=== PATIENT | female | born 1980 | race Caucasian/White ===

== ENCOUNTER 2020-05-12 13:39 | Emergency (ER) | payer OTHER, SELFPAY ==
[2020-05-12 13:40] VITALS: BP 147/82; PULSE 85; RESP 16; TEMP 36.3; O2SAT 100; BMI 31.2
[2020-05-12 13:49] VITALS: BP 127/90; PULSE 80; RESP 13; O2SAT 98
--- NOTE | 2020-05-12 13:53 | EKG12_ITS ---
Test Reason : CP Blood Pressure : / mmHG Vent. Rate : 073 BPM Atrial Rate : 073 BPM P-R Int : 172 ms QRS Dur : 082 ms QT Int : 384 ms P-R-T Axes : 030 061 030 degrees QTc Int : 423 ms Sinus rhythm with sinus arrhythmia with occasional Premature ventricular complexes Otherwise normal ECG Confirmed by NANCY GARCIA, SHERLY ([id number]), supervising editor news reel GEORGIE PLASENCIA ([id number]) on 05/15/2020 2:34:05 PM Referred By: JUAN Confirmed By:SHERLY CRUZ MD
[2020-05-12 14:18] VITALS: BP 124/75; PULSE 74; RESP 16; O2SAT 98
--- NOTE | 2020-05-12 14:18 | ED.DCSUM_ITS ---
- ER Visit Summary Date of Service: 05/12/20 Chief Complaint: [Palpitations] History of Present Illness: The patient is a 39 F [presents the emergency department complaint palpitations for last 4 days. Patient's been feeling a fluttering in her chest every few minutes. Patient was seen by physician yester day within the [facility] system and had EKG which apparently looked normal as well as blood work which apparently looked normal as well. Patient states that today she was feeling the palpitations more frequently again and presented to be evaluated she is not sure if she should be here. She denies any chest pain. Patient states that she is diminished her caffeine intake. She does not take any supplements. She denies any syncopal episodes or presyncopal episodes. No recent illness.] Physical Examination: [HEENT-PERRLA, EOMI. Cranial nerves II through XII gross ly intact. TMs clear. Mucous membranes moist. No adenopathy. Cardiovascular-regular rate and rhythm without murmur or ectopy Lungs-clear to auscultation, chest wall stable without crepitus or subcu emphysema Abdomen-normoactive bowel sounds, soft, nontender, no rebound or rigidity, no peritoneal signs. Extremities-intact ?4, normal range of motion, normal pulses, atraumatic] Test Results: [EKG obtained on arrival showed a sinus rhythm with a ventricular rate of 73 bpm with occasional PVC noted. Patient also had occasional PACs noted.] Emergency Department Course and Treatment: [] Treatment Plan: [I discussed case with cardiology. I will start patient on a 48-hour Holter monitor. Patient has scheduled outpatient echocardiogram. Patient will be referred to cardiology for follow-up. I was able to review patient's lab work from yesterday and she had normal electrolytes as well as magnesium. Patient had normal TSH. Feel any further work-up is indicated at this time emergently.] Disposition: [Discharged home in stable condition] Impression: [Potation's PACs PVCs] This note was generated with [employer] dictation software. It may contain incorrect words, spelling, and punctuation that were not noted in review of the chart prior to signing ED Disposition - Plan for ED Patient: Referrals: Dylon Kim MD [Primary Care Provider] -
--- NOTE | 2020-05-12 14:20 | ED.DEP ---
ED Disposition - Plan for ED Patient: Instructions: Premature Ventricular Contractions, ED Palpitations Referrals: Dylon Kim MD [Primary Care Provider] - Denton Leslie MD [STAFF PHYSICIAN] - 5-7 Days
== END 2020-05-12 14:36 | disposition home or self-care (01) ==
LOC: ED 14:22
PROVIDERS: Emergency Provider Emergency Medicine; PCP Family Medicine
DX: I49.3 Ventricular premature depolarization (principal); I49.1 Atrial premature depolarization; R00.2 Palpitations
CPT/HCPCS: 93005; 93225; 93226; 99282

== ENCOUNTER → 2020-05-12 | Outpatient (CLI) | payer OTHER, SELFPAY ==
[2020-05-12 13:40] VITALS: BMI 31.2
== END | disposition home or self-care (01) ==
LOC: CVS 14:24
PROVIDERS: PCP Family Medicine; Visit Provider Emergency Medicine
DX: R00.2 Palpitations (principal)
CPT/HCPCS: 93225; 93226

== ENCOUNTER 2024-04-26 23:57 | Observation (INO) | payer OTHER, SELFPAY ==
[2024-04-26 23:58] VITALS: BP 138/98; PULSE 101; RESP 18; TEMP 36.9; O2SAT 100; BMI 26.8
[2024-04-27] VITALS (11 sets, daily range): BP systolic 91–115; BP diastolic 62–85; PULSE 67–82; RESP 14–18; TEMP 36.6–37.2; O2SAT 97–100; BMI 26.9
--- NOTE | 2024-04-27 00:08 | EKG12_ITS ---
Test Reason : DYSRHYTHMIA Blood Pressure : / mmHG Vent. Rate : 097 BPM Atrial Rate : 097 BPM P-R Int : 164 ms QRS Dur : 074 ms QT Int : 360 ms P-R-T Axes : 060 085 066 degrees QTc Int : 457 ms Normal sinus rhythm Normal ECG Confirmed by Carroll Schafer ([id number]), story editor REX MONDRAGON ([id number]) on 04/28/2024 8:16:21 AM Referred By: Confirmed By:Carroll Schafer
--- NOTE | 2024-04-27 00:10 | EDS_ITS ---
HPI HPI - GI History of Present Illness Chief Complaint: Abd Pain Detail of Chief Complaint: Abdominal pain Informant: patient Narrative Narrative: Patient presents to the emergency department with upper abdomen pain that started suddenly 2 hours ago. Patient states that she had gotten up to put the dog away and developed sudden onset of upper abdomen pain that radiated to her back. She had nausea and vomited once. Has never had pain like this before. Currently rates it about a 7-9 out of 10. She has known history of a gallstone diagnosed a few months ago. This was an incidental finding when they performed an ultrasound of her liver as she apparently had some elevated liver enzymes at the time. She has not been having pain when eating spicy or greasy foods. No prior abdominal surgeries. She denies chest pain or shortness of breath. PFSH PFS Home Medications ?Medication ?Instructions ?Recorded ?Last Taken ?Type NK 05/12/20 Unknown History Allergy/AdvReac Type Severity Reaction Status Date / Time No Known Allergies Allergy Verified 05/12/20 13:42 Social History Smoking Status: Never smoker ROS ROS ED Review of Systems ROS Unobtainable: other Constitutional Constitutional ED: Reports lethargy; Denies chills, fever(s), sweats or weight loss Eyes Eyes: Denies blurry vision, change in vision or diplopia ENT ENT ED: Denies rhinorrhea or sore throat Cardiovascular Cardiovascular: Denies chest pain, orthopnea or racing heartbeat Respiratory/Chest Respiratory/Chest: Denies cough, dyspnea, dyspnea on exertion, orthopnea or sputum Gastrointestinal Gastrointestinal: Reports abdominal pain, nausea and vomiting; Denies diarrhea Genitourinary Genitourinary ED: Denies dysuria, hematuria or urinary frequency Musculoskeletal Musculoskeletal: Denies arthralgias, back pain, myalgias or neck pain Integumentary Denies abscess, Abrasions or rash Neurologic Neurologic: Denies headache(s) or weakness Psychiatric Psychiatric: Denies anxiety, depression or suicidal thoughts Endocrine Endocrinology: Denies polydipsia, polyphagia or polyuria Hematologic/Lymphatic Hematologic/Lymphatic: Denies easy bleeding, easy bruising or lymphadenopathy Allergic/Immunologic Allergic/Immunologic ED: Denies mouth swelling, tongue swelling or urticaria EXAM Physical Exam Const Vital Signs: 04/26/24 23:58 04/27/24 01:58 04/27/24 03:00 Temperature 98.4 F 98.4 F Temperature Source Oral Oral Pulse Rate 101 H 72 67 Respiratory Rate 18 16 16 Blood Pressure 138/98 H 115/85 H 102/72 Blood Pressure Mean 111 95 82 Pulse Ox 100 98 98 Oxygen Delivery Method Room Air Room Air Room Air 04/27/24 05:00 Temperature Temperature Source Pulse Rate 81 Respiratory Rate 16 Blood Pressure 99/64 Blood Pressure Mean 75 Pulse Ox 97 Oxygen Delivery Method Room Air Positive well nourished and well developed General Appearance ED: well developed and NAD HEENT Reports TM's clear and moist mucous membranes normocephalic and atraumatic; Negative for trauma or tenderness Tympanic Membrane ED: Yes TM's clear Eyes PERRL and EOMs intact bilaterally General Eye ED: Negative for pale conjunctiva or scleral icterus Neck no lymphadenopathy, supple and no JVD General: Negative for tenderness Chest Wall inspection of chest normal and palpation of chest normal Chest: Negative for tenderness Resp normal respiratory effort and clear to auscultation bilaterally Effort and Inspection: Negative for respiratory distress or pain with movement Auscultation: Negative for rhonchi, wheezes or diminished lung sounds Cardio regular rate, regular rhythm, S1 normal heart sound, S2 normal heart sound and no murmurs Peripheral Pulses: pulses 2+ throughout GI normal to inspection, nondistended, normoactive bowel sounds, soft to palpation, non-tender, non-distended and no masses GI Narrative: Palpation of the abdomen really does not seem to reproduce her pain. There is no rebound, rigidity, or peritoneal signs. No mass palpated. Back/Spine no CVA tenderness and no thoracic nor lumbar tenderness Extremity normal to inspection General Extremety ED: Negative for edema General Extremity: Negative for edema Neuro oriented x3, CN's II-XII intact bilaterally, no sensory deficits noted and gait normal Sensorium / Orientation: awake, alert, oriented to person, oriented to place and oriented to time Motor Exam: strength 5/5 throughout and strength abnormal Psych mental status grossly normal Skin no rashes or lesions noted and no wounds MDM MDM MDM Narrative Medical decision making narrative: Patient presents with upper abdomen pain radiating to her back with her episode of vomiting. IV line established. In the differential would be gallbladder disease versus pancreatitis versus kidney stone or other acute process. IV line established. She was medicated with morphine and Zofran. CBC with differential white count 7.1 with hemoglobin 16 and platelet count of 318. Chemistries unremarkable. LFTs were normal. Lactate slightly elevated 2.6 and lipase was slightly elevated 97. Urinalysis was normal. hCG was negative. Patient had good pain relief. CT scan of the abdomen pelvis obtained showed a distended gallbladder with questionable pericholecystic fluid and gallstone versus polyp. Recommended obtaining a gallbladder ultrasound to evaluate further. No other significant findings. Patient case was discussed with general surgeon on-call Dr. Quintero for him who recommended obtaining a gallbladder ultrasound. Given that patient resting more comfortably now and has normal labs and OR may not be available till late afternoon tomorrow it was thought she can wait till this morning to obtain a gallbladder ultrasound. Patient will be kept in the emergency department until ultrasound comes in to perform study. Care of patient turned over this morning to Dr. العراقي awaiting gallbladder ultrasound and final disposition Lab Data Attestation: I reviewed the patient's lab results. Labs: Laboratory Results - last 24 hr 04/27/24 04/27/24 04/27/24 00:10 02:06 04:50 WBC 7.1 RBC 5.08 Hgb 16.4 H Hct 46.1 MCV 90.7 MCH 32.3 H MCHC 35.6 RDW Std Deviation 39.9 RDW Coeff of Syl 12.1 Plt Count 318 MPV 10.1 Immature Gran % (Auto) 0.300 Neut % (Auto) 53.0 Lymph % (Auto) 34.9 [place] % (Auto) 9.3 Eos % (Auto) 1.8 Baso % (Auto) 0.7 Absolute Neuts (auto) 3.8 Absolute Lymphs (auto) 2.48 Nucleated RBC % 0 Sodium 141 Potassium 3.4 L Chloride 106 Carbon Dioxide 25.0 Anion Gap 10 BUN 8 Creatinine 0.76 Estim Creat Clear Calc 89.63 Est GFR (MDRD) Af Amer 107 Est GFR (MDRD) Non-Af 88 BUN/Creatinine Ratio 10.5 Glucose 93 Lactic Acid 2.6 H* 1.0 Calcium 9.3 Total Bilirubin 0.30 AST 20 ALT 31 Alkaline Phosphatase 102 Troponin I High Sens 3 Total Protein 6.7 Albumin 3.8 Globulin 2.9 Albumin/Globulin Ratio 1.3 Lipase 97 H Serum , Qual NEGATIVE Urine Color Yellow Urine Clarity Clear Urine pH 7.0 Ur Specific [place] 1.010 Urine Protein Negative Urine Glucose (UA) Normal Urine Ketones Negative Urine Occult Blood Negative Urine Nitrite Negative Urine Bilirubin Negative Urine Urobilinogen Normal Ur Leukocyte Esterase 500 H Urine RBC 0 SEEN Urine WBC 5-10 SEEN Ur Squamous Epith Cells 0 SEEN Urine Bacteria 0 SEEN Urine Mucus 0 SEEN Radiography Diagnostic Testing: Clinical Impression(s) from Imaging Studies Abdomen/Pelvis CT 04/27/24 01:02 IMPRESSION: 1. Slightly distended gallbladder. Small polyp or noncalcified gallstone. Questionable trace of pericholecystic fluid. Correlation with gallbladder ultrasound may be of benefit for further evaluation. 2. Normal appendix. 3. Small involuting right ovarian cyst. 4. Liquid stool filling the distal sigmoid colon and rectum, as can be seen with diarrhea. No findings of small bowel obstruction. Electronically Signed: Luca Massey MD at 2:08 EDT , Discharge Plan Triage Chief Complaint: Abd Pain ED Provider: Vamshi Duron Dx/Rx/DC Orders Clinical Impression: Abdominal pain Prescriptions: No Action NK Primary Care Provider: Zhou Patel Referrals: Zhou Patel MD [Primary Care Provider] - Print Language: Sri Lankan
[2024-04-27] MEDS: Morphine 4 MG/ML Syringe IV ×2 (00:15→13:32)
[2024-04-27] MEDS: Ondansetron 4 MG/2 ML Vial IV ×2 (00:15→13:32)
[2024-04-27] MEDS: Lidocaine 2% Viscous15 ML UDC 15 ML PO (00:22)
[2024-04-27] MEDS: Mag /Aluminum/Simeth WCH UDC 30 ML ORAL.SUSP PO (00:22)
[2024-04-27] MEDS: 0.9% Normal Saline (1000mL) 1,000 ML 125 ML IV ×2 (00:31→13:31)
[2024-04-27 00:37] LABS: Absolute Lymphocyte Count 2.48 X10^3/uL (0.83-4.51); Absolute Neutrophil Count 3.8 X10^3/uL (2.0-7.7); Basophil# 0.05 X10^3/uL; Basophil% 0.7 % (0-1); Eosinophil# 0.13 X10^3/uL; Eosinophils% 1.8 % (0-5); Hematocrit 46.1 % (37-47); Hemoglobin 16.4 g/dL (12.0-15.0); Lymphocyte # 2.48 X10^3/ul (0.83-4.51); Lymphocyte % 34.9 % (19-41); Mean Corp Hgb Conc 35.6 g/dL (32-36); Mean Corpuscular Hgb 32.3 pg (27.0-32.0); Mean Corpuscular Volume 90.7 fL (81-99); Mean Platelet Vol. 10.1 fl (6.2-12.0); Monocyte# 0.66 X10^3/uL; Monocyte% 9.3 % (0-10); NRBC Flagged by Analyzer 0 % (0-5); Neutrophil # 3.76 X10^3/uL (2.7-7.7); Platelet Count 318 K/mm3 (150-450); RBC Distribution Width CV 12.1 % (11.6-14.6); RBC Distribution Width SD 39.9 fl (35.1-43.9); Red Blood Count 5.08 M/mm3 (4.2-5.4); White Blood Count 7.1 K/mm3 (4.4-11.0)
[2024-04-27 00:54] LABS: Internal QC Validated? YES +Cl - CLEAR BKGD; Pregnancy, Serum, hCG Quali. NEGATIVE Negative
[2024-04-27 01:00] LABS: ALB/GLOB Ratio 1.3 RATIO (0.9-2.4); AST(SGOT) 20 U/L (15-37); Alanine Aminotransfer ALT/SGPT 31 U/L (13-56); Albumin, Serum 3.8 g/dL (3.2-5.0); Alkaline Phosphatase 102 U/L (45-117); Anion Gap 10 (5-15); BUN 8 mg/dL (7-18); BUN/Creat Ratio 10.5 RATIO (10-20); Calcium,Total 9.3 mg/dL (8.5-10.1); Chloride 106 mmol/L (98-107); Creatinine, Serum 0.76 mg/dL (0.55-1.02); EST Glomerular Filtration Rate 88 mL/min (>60); Est Glom Filt Rate - Afr Amer 107 mL/min (>60); Estimated Creatinine Clearance 89.63 ml/min; Globulin 2.9 g/dL (2.2-4.2); Glucose 93 mg/dL (74-106); Lipase 97 U/L (13-75); Potassium 3.4 mmol/L (3.5-5.1); Protein, Total 6.7 g/dL (6.4-8.2); Sodium Level 141 mmol/L (136-145); Troponin-I HS 3 pg/mL (3.0-54.0)
[2024-04-27 01:01] LABS: Lactic Acid 2.6 mmol/L (0.4-1.9)
--- NOTE | 2024-04-27 01:02 | CT_ITS ---
EXAM: CT ABDOMEN AND PELVIS WITH INTRAVENOUS CONTRAST CLINICAL INDICATION: abdominal pain TECHNIQUE: Helically acquired images were obtained of the abdomen and pelvis with intravenous contrast. This CT exam was performed using one or more of the following dose reduction techniques: automated exposure control, adjustment of the mA and/or kV according to patient size, and/or use of iterative reconstruction technique. CONTRAST: IV 100mL [id number]-370 RADIATION DOSE: Total DLP: 761.58 mGy-cm. COMPARISON: No relevant prior studies available. FINDINGS: LOWER THORAX: Visualized lung bases are clear. No significant pericardial effusion. ABDOMEN: LIVER: Unremarkable. Homogeneous. No focal mass. GALLBLADDER AND BILE DUCTS: The gallbladder is slightly distended measuring 8.8 x 4.2 cm in diameter. There is a suggestion of a trace of fluid interposed within the gallbladder and adjacent liver. A 3.5 mm rounded noncalcified nodular opacity is seen along the lateral wall of the fundus, due to a polyp or noncalcified gallstone. No biliary ductal dilatation. No pericholecystic stranding. PANCREAS: Unremarkable. No focal cystic or solid mass. No findings of acute pancreatitis. SPLEEN: Unremarkable. Normal size without focal cystic or solid mass. ADRENALS: Unremarkable. No nodules. KIDNEYS AND URETERS: Unremarkable. Normal renal size and position. No hydronephrosis. STOMACH AND BOWEL: No gastric mural thickening, periduodenal inflammatory changes or distended small bowel loops. No findings of small bowel obstruction, diverticulitis or colitis. Liquid stool noted within the distal sigmoid colon and rectum, as can be seen with diarrhea. PELVIS: APPENDIX: Normal. No evidence of acute appendicitis. BLADDER: Unremarkable. REPRODUCTIVE: Normal size uterus with hypodense endometrium. Right ovary contains a 1.3 cm lobulated/involuting cyst. No left adnexal abnormality. ABDOMEN and PELVIS: INTRAPERITONEAL SPACE: Unremarkable. No ascites or other fluid collection. No free air. BONES/JOINTS: Small benign cavernous hemangioma of bone noted within the right side of the L2 vertebral body. No acute osseous abnormality. SOFT TISSUES: Unremarkable. No discrete abdominal or pelvic wall hernia. VASCULATURE: Unremarkable. Abdominal aorta is non-dilated. LYMPH NODES: Scattered tiny nonspecific lymph nodes are seen within the jejunal mesentery. No adenopathy. No clustered pericecal lymph nodes. CT/Abdomen/Pelvis W IV Cont ONLY IMPRESSION: 1. Slightly distended gallbladder. Small polyp or noncalcified gallstone. Questionable trace of pericholecystic fluid. Correlation with gallbladder ultrasound may be of benefit for further evaluation. 2. Normal appendix. 3. Small involuting right ovarian cyst. 4. Liquid stool filling the distal sigmoid colon and rectum, as can be seen with diarrhea. No findings of small bowel obstruction. Electronically Signed: Luca Massey MD at 2:08 EDT ,
[2024-04-27 02:10] LABS: Bacteria 0 SEEN /hpf (None Seen); Mucous, Urine 0 SEEN /hpf (<or=2+); Red Blood Cells-Urine 0 SEEN /hpf (0-5); Squamous Epithelial Cells - UA 0 SEEN /hpf (5-10)
[2024-04-27 02:12] LABS: Color, Urine Yellow (Yellow); Glucose, Dipstick Normal (Normal); Ketone-Dipstick Negative (Negative); Leukocyte Esterase-Dipstick 500 /ul (Negative); Nitrite-Dipstick Negative (Negative); Occult Blood-Urine Negative /ul (Negative); Protein-Dipstick Negative (Negative); Urine Bilirubin Dipstick Negative (Negative); Urine Clarity Clear (Clear); Urine Urobilinogen Normal (Normal)
[2024-04-27 02:23] LABS: White Blood Cells 5-10 SEEN /hpf (0-5)
[2024-04-27 04:29] LABS: Reflex Lactate? Y
[2024-04-27] MEDS: Pantoprazole Sodium 80 MG in 0.9% Normal Saline (50mL Bag) 15 ML 420 MG IV BOLUS (05:33)
--- NOTE | 2024-04-27 05:49 | US_ITS ---
STUDY: ABDOMINAL ULTRASOUND - RIGHT UPPER QUADRANT REASON FOR VISIT: Female, 43 years old right upper quadrant pain. TECHNIQUE: Ultrasound evaluation of the right upper quadrant was performed with real-time and static rodríguez-scale imaging. TECHNICAL QUALITY: Adequate. COMPARISON: Comparison is made with prior CT scan and pelvis done earlier in the day. FINDINGS: Liver: The liver measures cm. There is normal echogenicity of the liver. The bile ducts are within normal limits. There is hepatic color flow. The direction of portal flow is hepatopetal. There is no demonstrated mass lesion. Gallbladder: Normal distended gallbladder. The gallbladder wall is thickened and measures 4.7 mm. There is a negative sonographic Leger''s sign. There is pericholecystic fluid. There are multiple echogenic structures within the gallbladder, consistent with multiple gallstones. Common Bile Duct (C.B.D.): The common bile duct measures 5. mm. Pancreas: Normal size of the head, body and tail of the pancreas. There is normal echogenicity of the pancreas. There is no demonstrated pancreatic mass or cyst. Right Kidney: Normal size of the right kidney. The right kidney measures 10 cm x 5.1 cm x 4.1 cm. Normal renal cortex. The right cortex measures 1.1 cm. There is no demonstrated renal mass or cyst. There is no right hydronephrosis. US/Gallbladder IMPRESSION: Multiple gallstones. Thickened gallbladder wall. Pericholecystic fluid. Cholecystitis should be ruled out. Electronically Signed: Devante Miller MD at 8:38 EDT ,
--- NOTE | 2024-04-27 09:55 | HP.PCM_ITS ---
[facility] - General General Date of Service: 04/27/24 Chief Complaint: Epigastric pain HPI Narrative KAREN FRANK, is a 43 F who presents with epigastric/right upper quadrant pain that started last night. Patient notes she was laying in bed and went to put her dog away, Upon rising out of bed, she noted epigastric pain that intensified to an 7-9/10 pain. She notes it radiated straight through into her back. She notes associated nausea and vomiting. She notes having a sweating episode, however unsure if she had a fever. She states a few months back she had elevated liver enzymes which prompted a RUQ u/s by her PCP. Per patient, RUQ u/s demonstrated gallstones and no other findings noted. She states her PCP was going to repeat liver enzymes and RUQ u/s in 3 months. She notes having breaded shrimp, rice and cucumber salad for dinner last night. She denies having any previous gallbladder attacks. She notes previous history PVC's. 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 She denies pulmonary history. She notes only previous procedure is a colonoscopy for family history and rectal bleeding. She notes following the pain medication in the ED, her pain has been controlled. CT scan of ab/pel demonstrated: IMPRESSION: 1. Slightly distended gallbladder. Small polyp or noncalcified gallstone. Questionable trace of pericholecystic fluid. Correlation with gallbladder ultrasound may be of benefit for further evaluation. 2. Normal appendix. 3. Small involuting right ovarian cyst. 4. Liquid stool filling the distal sigmoid colon and rectum, as can be seen with diarrhea. No findings of small bowel obstruction. RUQ u/s demonstrated: IMPRESSION: Multiple gallstones. Thickened gallbladder wall. Pericholecystic fluid. Cholecystitis should be ruled out. [facility] Home Medications ?Medication ?Instructions ?Recorded ?Last Taken ?Type NK 05/12/20 Unknown History Allergy/AdvReac Type Severity Reaction Status Date / Time No Known Allergies Allergy Verified 05/12/20 13:42 Social History Smoking Status: Never smoker ROS Constitutional Constitutional: Reports systems reviewed and no addt'l complaints, except as documented Eyes Eyes: Reports systems reviewed and no addt'l complaints, except as documented ENT HEENT: Reports systems reviewed and no addt'l complaints, except as documented Cardiovascular Cardiovascular: Reports systems reviewed and no addt'l complaints, except as documented Respiratory/Chest Respiratory/Chest: Reports systems reviewed and no addt'l complaints, except as documented Gastrointestinal Gastrointestinal: Reports systems reviewed and no addt'l complaints, except as documented Genitourinary Genitourinary: Reports systems reviewed and no addt'l complaints, except as documented Musculoskeletal Musculoskeletal: Reports systems reviewed and no addt'l complaints, except as documented Integumentary Integumentary: Reports systems reviewed and no addt'l complaints, except as documented Neurologic Neurologic: Reports systems reviewed and no addt'l complaints, except as documented Psychiatric Psychiatric: Reports systems reviewed and no addt'l complaints, except as documented Endocrine Endocrinology: Reports systems reviewed and no addt'l complaints, except as documented Hematologic/Lymphatic Hematologic/Lymphatic: Reports systems reviewed and no addt'l complaints, except as documented Allergic/Immunologic Allergic/Immunologic: Reports systems reviewed and no addt'l complaints, except as documented Vital Signs Vital Signs Vital Signs: 04/26/24 23:58 04/27/24 01:58 04/27/24 03:00 Temperature 98.4 F 98.4 F Temperature Source Oral Oral Pulse Rate 101 H 72 67 Respiratory Rate 18 16 16 Blood Pressure 138/98 H 115/85 H 102/72 Blood Pressure Mean 111 95 82 Pulse Ox 100 98 98 Oxygen Delivery Method Room Air Room Air Room Air 04/27/24 05:00 04/27/24 07:00 04/27/24 09:00 Temperature Temperature Source Pulse Rate 81 80 78 Respiratory Rate 16 16 16 Blood Pressure 99/64 100/62 91/70 Blood Pressure Mean 75 74 77 Pulse Ox 97 97 99 Oxygen Delivery Method Room Air Room Air Room Air Weight Weight: 151 lb 3.794 oz Body Mass Index (BMI) 26.8 Physical Exam Const alert, oriented x3 and no apparent distress HEENT normocephalic and head/scalp atraumatic Eyes PERRL Neck full ROM Lymph Lymphatic: no lymphadenopathy noted Resp normal respiratory effort and clear to auscultation bilaterally Cardio regular rate and regular rhythm GI GI Narrative: Abdomen- soft, slight tenderness to the epigastric region. Positive bowel sounds. Negative Leger's sign. no CVA tenderness Back/Spine no CVA tenderness Extremity normal to inspection Skin no rashes or lesions noted Neuro no focal motor deficits and no sensory deficits noted Psych mental status grossly normal, thought process normal, cooperative and affect normal Results Lab / Micro Data 04/27/24 00:10 04/27/24 00:10 Labs: Laboratory Results - last 24 hr 04/27/24 00:10: WBC 7.1, RBC 5.08, Hgb 16.4 H, Hct 46.1, MCV 90.7, MCH 32.3 H, MCHC 35.6, RDW Std Deviation 39.9, RDW Coeff of Syl 12.1, Plt Count 318, MPV 10.1, Immature Gran % (Auto) 0.300, Neut % (Auto) 53.0, Lymph % (Auto) 34.9, [place] % (Auto) 9.3, Eos % (Auto) 1.8, Baso % (Auto) 0.7, Absolute Neuts (auto) 3.8, Absolute Lymphs (auto) 2.48, Nucleated RBC % 0, Sodium 141, Potassium 3.4 L , Chloride 106, Carbon Dioxide 25.0, Anion Gap 10, BUN 8, Creatinine 0.76, Estim Creat Clear Calc 89.63, Est GFR (MDRD) Af Amer 107, Est GFR (MDRD) Non-Af 88, BUN/Creatinine Ratio 10.5, Glucose 93, Lactic Acid 2.6 H*, Calcium 9.3, Total Bilirubin 0.30, AST 20, ALT 31, Alkaline Phosphatase 102, Troponin I High Sens 3, Total Protein 6.7, Albumin 3.8, Globulin 2.9, Albumin/Globulin Ratio 1.3, L ipase 97 H, Serum , Qual NEGATIVE 04/27/24 02:06: Urine Color Yellow, Urine Clarity Clear, Urine pH 7.0, Ur Specific [place] 1.010, Urine Protein Negative, Urine Glucose (UA) Normal, Urine Ketones Negative, Urine Occult Blood Negative, Urine Nitrite Negative, Urine Bilirubin Negative, Urine Urobilinogen Normal, Ur Leukocyte Esterase 500 H, Urine RBC 0 SEEN, Urine WBC 5-10 SEEN, Ur Squamous Epith Cells 0 SEEN, Urine Bacteria 0 SEEN, Urine Mucus 0 SEEN 04/27/24 04:50: Lactic Acid 1.0 Imaging Radiology Impression Abdomen/Pelvis CT 04/27/24 01:02 IMPRESSION: 1. Slightly distended gallbladder. Small polyp or noncalcified gallstone. Questionable trace of pericholecystic fluid. Correlation with gallbladder ultrasound may be of benefit for further evaluation. 2. Normal appendix. 3. Small involuting right ovarian cyst. 4. Liquid stool filling the distal sigmoid colon and rectum, as can be seen with diarrhea. No findings of small bowel obstruction. Electronically Signed: Luca Massey MD at 2:08 EDT , Gallbladder Ultrasound 04/27/24 05:49 IMPRESSION: Multiple gallstones. Thickened gallbladder wall. Pericholecystic fluid. Cholecystitis should be ruled out. Electronically Signed: Devante Miller MD at 8:38 EDT , Assessment & Plan Assessment/Plan (1) Acute cholecystitis: PLAN: I am seeing this patient in conjunction with Dr. Banuelos. He has independently evaluated this patient. Patient is a very pleasant 43 y/o F who presented with a 1 day history of epigastric pain radiating to the right upper quadrant. She notes a history of gallstones. Patient, however denies any previous gallbladder attacks. She is now having evidence of cholecystitis on her ultrasound. Plan will be to admit for observation with IV pain medication, IV fluids. Dr. Banuelos will plan to perform a laparoscopic cholecystectomy with intraoperative cholangiogram tomorrow. Procedure details, risks and benefits have been explained. Patient has had the opportunity to ask and have questions answered. Patient verbally understands and agrees with the proposed plan. Thank you for allowing us to participate in this patient's care. Charges/Coding Visit Charges OBSV E&M: 22179 Observ/hosp same date L2
[2024-04-27] MEDS: 0.9% Normal Saline (1000mL) 1,000 ML 100 ML IV ×2 (16:50→21:11)
[2024-04-27] MEDS: Piperacil/Tazobactam 3.375 GM in 0.9% Normal Saline (50mL MB+) 50 ML IV ×2 (16:50→21:12)
[2024-04-28] VITALS (15 sets, daily range): BP systolic 92–129; BP diastolic 57–90; PULSE 73–95; RESP 16–20; TEMP 36.5–37; O2SAT 97–100; BMI 26.6
[2024-04-28 05:07] LABS: Absolute Lymphocyte Count 2.41 X10^3/uL (0.83-4.51); Basophil# 0.03 X10^3/uL; Basophil% 0.5 % (0-1); Eosinophil# 0.13 X10^3/uL; Eosinophils% 2.1 % (0-5); Hematocrit 37.3 % (37-47); Hemoglobin 12.6 g/dL (12.0-15.0); Lymphocyte # 2.41 X10^3/ul (0.83-4.51); Lymphocyte % 39.5 % (19-41); Mean Corp Hgb Conc 33.8 g/dL (32-36); Mean Corpuscular Hgb 31.1 pg (27.0-32.0); Mean Corpuscular Volume 92.1 fL (81-99); Mean Platelet Vol. 9.9 fl (6.2-12.0); Monocyte# 0.48 X10^3/uL; Monocyte% 7.9 % (0-10); NRBC Flagged by Analyzer 0 % (0-5); Neutrophil # 3.03 X10^3/uL (2.7-7.7); Neutrophil % 49.7 % (47-70); Platelet Count 239 K/mm3 (150-450); RBC Distribution Width CV 12.4 % (11.6-14.6); RBC Distribution Width SD 41.7 fl (35.1-43.9); Red Blood Count 4.05 M/mm3 (4.2-5.4); White Blood Count 6.1 K/mm3 (4.4-11.0)
[2024-04-28 05:36] LABS: ALB/GLOB Ratio 1.2 RATIO (0.9-2.4); AST(SGOT) 16 U/L (15-37); Alanine Aminotransfer ALT/SGPT 16 U/L (13-56); Albumin, Serum 2.8 g/dL (3.2-5.0); Alkaline Phosphatase 67 U/L (45-117); Anion Gap 5 (5-15); BUN 5 mg/dL (7-18); BUN/Creat Ratio 5.9 RATIO (10-20); Calcium,Total 8.2 mg/dL (8.5-10.1); Chloride 110 mmol/L (98-107); Creatinine, Serum 0.84 mg/dL (0.55-1.02); EST Glomerular Filtration Rate 78 mL/min (>60); Est Glom Filt Rate - Afr Amer 95 mL/min (>60); Estimated Creatinine Clearance 81.26 ml/min; Globulin 2.3 g/dL (2.2-4.2); Glucose 86 mg/dL (74-106); Potassium 3.7 mmol/L (3.5-5.1); Protein, Total 5.1 g/dL (6.4-8.2); Sodium Level 140 mmol/L (136-145)
[2024-04-28] MEDS: Piperacil/Tazobactam 3.375 GM in 0.9% Normal Saline (50mL MB+) 50 ML IV (05:56)
[2024-04-28] MEDS: 0.9% Normal Saline (1000mL) 1,000 ML 15 ML IV (06:45)
--- NOTE | 2024-04-28 07:12 | PCM.PRE.AN2 ---
ASA Classification* ASA Classification ASA Classification: 2 Assessment & Plan Anesthesia* Anesthesia Assessment Anesthesia Assessment: Discussed sedation and/or anesthesia options, risks, benefits, and alternatives with patient/parents/legal guardian/POA. Questions invited. The patient/parents/legal guardian/POA seems to understand and agrees to proceed with anesthesia plan. Reviewed the physical assessment, medical history, allergy history and patient home medications list prior to surgery/procedure/anesthetic and documented any changes. Performed airway and anesthesia risk assessments. Anesthesia Type Anesthesia Type: General Anesthesia Focused Assessment* Temperature: 98.2 F Pulse Rate: 73 Blood Pressure: 106/64 Respiratory Rate: 16 Pulse Ox: 100 Airway Assessment Mouth opens: >3 cm Mallampati Score: II Focused Labs Anesthesia Preop lab: CBC WBC 6.1 K/mm3 (4.4-11.0) 04/28/24 04:40 RBC 4.05 M/mm3 (4.2-5.4) L 04/28/24 04:40 Hgb 12.6 g/dL (12.0-15.0) 04/28/24 04:40 Hct 37.3 % (37-47) 04/28/24 04:40 Plt Count 239 K/mm3 (150-450) 04/28/24 04:40 CHEMISTRY Potassium 3.7 mmol/L (3.5-5.1) 04/28/24 04:40 Sodium 140 mmol/L (136-145) 04/28/24 04:40 BUN 5 mg/dL (7-18) L 04/28/24 04:40 Creatinine 0.84 mg/dL (0.55-1.02) 04/28/24 04:40 Glucose 86 mg/dL (74-106) 04/28/24 04:40 COAG Pre-Assessment Diagnosis/Proposed Procedure Planned Operative Procedure(s): laproscopic Dimple Anesthesia History Anesthesia History - medical hospital sales: Anesthesia History - medical hospital sales Hx Hospitalization Any Problems With Anesthesia No 04/27/24 21:09 Cholinesterase deficiency No 04/27/24 21:09 You/Your Family Experience No 04/27/24 21:09 fever (hyperthermia) with Relationship Recent Exposure to Contagious No 04/27/24 21:09 Disease Does patient have nerve No 04/27/24 21:09 stimulator Patient instructed to have No 04/27/24 21:09 device shut off --Does patient have Pacemaker No 04/28/24 06:15 or ICD? When Was Last Pacemaker Check QUESTION #4 FULL TEXT: You/Your Family Experience fever (hyperthermia) with Anesthesia Last Oral Intake Last Oral intake: Last Oral Intake NPO since 00:00 04/28/24 06:15 Meds taken in AM with sips of No 04/28/24 06:15 water? Meds patient instructed to take am of surgery PONV PONV - medical hospital sales: PONV - medical hospital sales Female HX of Motion Sickness HX of N/V After Surgery Non-Smoker Duration of Surgery greater than 60 minutes Number of Risk Factors PONV Score Height & Weight Height & Weight: Anesthesia: Height & Weight Height 5 ft 3 in 04/28/24 06:15 Weight: 68.356 kg 04/28/24 06:15 Body Mass Index (BMI) 26.6 04/28/24 06:15 Respiratory Assessment Respiratory Assessment - medical hospital sales: Respiratory Tract Infection Hx - medical hospital sales Hx Respiratory Tract Infection No 04/27/24 21:09 STOP Sleep Apnea STOP Sleep Apnea - medical hospital sales: STOP Sleep Apnea - medical hospital sales Hx Hypertension No 04/27/24 15:30 Hx Sleep Apnea No 04/27/24 15:30 CPAP BIPAP Do you snore loudly (louder No 04/27/24 15:30 than talking or can be heard Do you often feel tired/ No 04/27/24 15:30 fatigued/ sleepy during daytime? Has anyone observed you stop No 04/27/24 15:30 breathing during sleep? STOP Results Negative 04/27/24 15:30 QUESTION #5 FULL TEXT : Do you snore loudly (louder than talking or can be heard through closed doors)? Tobacco Use History Tobacco Use History - medical hospital sales: Tobacco Use History - medical hospital sales Tobacco Use Smoking Status Never smoker 04/27/24 15:30 Hx Tobacco Use No 04/27/24 15:30 Years Smoking Packs Smoked per Day Smoking Cessation Date was within the last 15 years Hx Smoking Cessation Date Hx Smoking Cessation Counseling Hematologic Medial History Hematologic Hx - medical hospital sales: Hematologic Medical Hx - documentation improvement specialist Hx of Blood Transfusion No 04/27/24 15:30 Hx of Transfusion in last 3 No 04/27/24 15:30 Months Date of Last Transfusion (if within last 3 months) Ever experience any problems No 04/27/24 15:30 with transfusion(s)? Specify any problems Hx of Preganancy in last 3 N/A 04/27/24 15:30 Months Nurse Filling Out Transfusion FSTEINER 04/27/24 15:30 & Questions: Date: 04/27/24 04/27/24 15:30 Time: 15:32 04/27/24 15:30 Patient unable to answer at this time (ie. confused, unrespo /Reproduction History /Reproductive History - medical hospital sales: /Reproductive Hx- medical hospital sales Hx Now No 04/27/24 21:09 Gestational Age (in weeks): EDC: Hx Hx Para Hx Section SAB No 04/26/24 23:58 Active Medications Active Medications: Current Medications Generic Name Dose Route Start Last Admin Trade Name Freq PRN Reason Stop Dose Admin Acetaminophen 650 mg 04/27/24 15:51 Acetaminophen 325 Mg Tablet PO Q6H PRN PRN Pain 1-10 Or Fever >100.7 Hydromorphone HCl 0.5 - 1 mg 04/27/24 15:51 Hydromorphone 1 Mg/Ml Syringe IV Q3H PRN PRN Pain Score 6-10 Sodium Chloride 250 mls @ 15 mls/hr 04/27/24 15:34 IV .[id number] PRN Additional IVPB Infusion Sodium Chloride 250 mls @ 15 mls/hr 04/27/24 15:34 IV .[id number] PRN Saline Flush Sodium Chloride 1,000 mls @ 100 mls/hr 04/27/24 15:51 04/28/24 06:00 IV 0 mls/hr .Q10H KATELYN Infusion Piperacillin Sod/Tazobactam 50 mls @ 12.5 mls/hr 04/27/24 15:51 04/28/24 05:56 Sod 3.375 gm/ Sodium Chloride IV 12.5 mls/hr Q8 KATELYN Administration Sodium Chloride 1,000 mls @ 15 mls/hr 04/28/24 06:40 04/28/24 06:45 IV 15 mls/hr .Q48H KATELYN Administration Ondansetron HCl 4 mg 04/27/24 15:51 Ondansetron 4 Mg/2 Ml Vial IV Q8H PRN PRN NAUSEA/VOMITING Oxycodone HCl 5 mg 04/27/24 15:51 Oxycodone 5 Mg Tablet PO Q4H PRN PRN Pain Score 4-10 Sodium Chloride 10 - 40 ml 04/27/24 15:34 0.9% Saline Lock 10 Ml Syringe IV UD PRN SALINE FLUSH PFSH Medical History (Updated 04/27/24 @ 15:35 by Mariah Zapata) Non-smoker Irregular heart beat Migraines Home Medications ?Medication ?Instructions ?Recorded ?Last Taken ?Type NK 05/12/20 Unknown History Allergy/AdvReac Type Severity Reaction Status Date / Time No Known Allergies Allergy Verified 05/12/20 13:42 Social History Smoking Status: Never smoker Review of Systems (Anesthesia) ROS Narrative System reviewed and no additional complaints, except as documented.
--- NOTE | 2024-04-28 07:14 | PCM.PN.SRG ---
Subjective Subjective Patient seen and examined during preoperative holding. She has not had recurrence of her pain. She has remained n.p.o. since midnight. She notes that she has started her period. Objective Data Objective Data Vital Signs: Vital Signs Temp Pulse Resp BP Pulse Ox O2 Del Method 98.2 F 73 16 106/64 100 Room Air 04/28/24 07:13 04/28/24 07:13 04/28/24 07:13 04/28/24 07:13 04/28/24 07:13 04/28/24 06:15 Oxygen Delivery Method Room Air Weight: 150 lb 11.2 oz Body Mass Index (BMI) 26.6 Intake & Output: Intake and Output for Last 24 Hours 04/26/24 04/27/24 04/28/24 23:59 23:59 23:59 Intake Total 2530.42 / 2530.42 931.67 / 931.67 Balance 2530.42 / 2530.42 931.67 / 931.67 Lab / Micro Data 04/28/24 04:40 04/28/24 04:40 Labs: Laboratory Results - last 24 hr 04/28/24 04:40: WBC 6.1, RBC 4.05 L, Hgb 12.6, Hct 37.3, MCV 92.1, MCH 31.1, MCHC 33.8 D, RDW Std Deviation 41.7, RDW Coeff of Syl 12.4, Plt Count 239, MPV 9.9, Immature Gran % (Auto) 0.300, Neut % (Auto) 49.7, Lymph % (Auto) 39.5, Ashley % (Auto) 7.9, Eos % (Auto) 2.1, Baso % (Auto) 0.5, Absolute Neuts (auto) 3.0, Absolute Lymphs (auto) 2.41, Nucleated RBC % 0, Sodium 140, Potassium 3.7, Chloride 110 H, Carbon Dioxide 25.0, Anion Gap 5, BUN 5 L, Creatinine 0.84, Estim Creat Clear Calc 81.26, Est GFR (MDRD) Af Amer 95, Est GFR (MDRD) Non-Af 78, BUN/Creatinine Ratio 5.9 L, Glucose 86, Calcium 8.2 L, Total Bilirubin 1.10 H, AST 16, ALT 16, Alkaline Phosphatase 67, Total Protein 5.1 L, Albumin 2.8 L, Globulin 2.3, Albumin/Globulin Ratio 1.2 Radiography Diagnostic Testing: Radiology Impression Gallbladder Ultrasound 04/27/24 05:49 IMPRESSION: Multiple gallstones. Thickened gallbladder wall. Pericholecystic fluid. Cholecystitis should be ruled out. Electronically Signed: Devante Miller MD at 8:38 EDT , Physical Exam Const oriented x3 and no apparent distress Resp normal respiratory effort GI GI Narrative: Nondistended, soft, nontender to palpation Assessment & Plan Assessment/Plan (1) Acute cholecystitis: PLAN: Patient is hospital day 2 for admission for acute cholecystitis. She is pending operating room for lap sav with IOC today. Procedure details were reviewed and consents were confirmed. Will now proceed to the operating room. Tentatively planning for discharge later today pending evaluation of patient's tolerance of general anesthesia and postoperative pain control. Carroll Banuelos MD General Surgery Endocrine Surgery Pager: [facility] [address] [place] [address], [facility], [address] [place] [address] Office: [phone] Charges/Coding Visit Charges Inpatient E&M: 99693 Subs Hosp L2
--- NOTE | 2024-04-28 07:30 | GALL_PTH ---
PATIENT: KAREN FRANK LOC: MS3 U#:[id number] AGE/SX: 43/F ROOM: [facility] RE04/27/[address]: Dr. Carroll Banuelos MD : 1980 BED: 1 DIS: 04/28/2024 SPEC #: [id number] RECD: 04/28/24 10:58 STATUS: MATI REUrban #: [id number] SHELLY: 04/28/24 07:[address]: Carroll Banuelos DEPT: SURGICAL PATHOLOGY RECD BY: Sarah Jaimes ENTERED: 04/28/24 11:50 SP TYPE: [facility] DR: MD Katie Leach PA-C Tissues: Gallbladder, NOS Procedures: Surgery Specimen Level III HEADER OPERATION: Laparoscopic, cholecystectomy and IOC PRE-OP DIAGNOSIS: Acute cholecystitis TISSUE SUBMITTED: Gallbladder MICROSCOPIC DIAGNOSIS Gallbladder, cholecystectomy: Chronic cholecystitis and cholelithiasis. AM.mr 05/02/2024 MICROSCOPIC DESCRIPTION Slides are reviewed. GROSS DESCRIPTION Received is one container labeled with the patient's name and designated gallbladder. The specimen consists of a gallbladder measuring 7.0 cm in length and up to 3.5 cm in diameter. The external surface is pink-beck, smooth and glistening for the most part. Focally it is granular, hemorrhagic and contains cautery artifact. The gallbladder contains green-yellow mucoid bile and multiple mulberry -yellow stones measuring in aggregate 3.0 x 3.0 x 0.8cm and 0.1 to 0.4 cm in greatest dimension. The mucosa also shows several yellowish streaks consistent with cholesterolosis. The mucosa is bile-stained and without any mass lesions. The gallbladder wall measures up to 0.3 cm in thickness. Team Assembler sections from the gallbladder and the cystic duct are submitted in one cassette. / SJ: 04/28/2024 TC:3 CPT: 51970
[2024-04-28] MEDS: Bupiv/Epi 0.25% 30 ML Vial (07:53)
--- NOTE | 2024-04-28 08:00 | RAD_ITS ---
STUDY: INTRAOPERATIVE CHOLANGIOGRAM. REASON FOR EXAM: Female, 43 years old. Laparoscopic cholecystectomy. FLUOROSCOPY TIME (if supplied): ( 9.8 seconds ) minutes/seconds. 2.78 mGy. TECHNIQUE: An intraoperative cholangiogram was performed by the surgeon. Imaging was submitted. COMPARISON: None. FINDINGS: The visualized intrahepatic biliary ducts as well as the common bile duct are unremarkable. No intraluminal filling defect is seen. There is free flow of contrast into the duodenum. RAD/Cholangiogram/ O R,Initial IMPRESSION: Unremarkable intraoperative cholangiogram. Electronically Signed: Devante Miller MD at 9:16 EDT ,
[2024-04-28] MEDS: 0.9% Normal Saline (1000mL) 1,000 ML 25 ML IV (08:15)
--- NOTE | 2024-04-28 09:06 | PCM.OPRPT ---
Report of Operation Date of Procedure: 04/28/24 Pre-Operative Diagnosis: Acute cholecystitis Post-Operative Diagnosis: Same Surgery/Procedure Performed:: Laparoscopic cholecystectomy with intraoperative cholangiography Description of Surgical Findings:: ? Evidence of acute inflammation with omental attachments to the peritoneal surface of the gallbladder ? Cholangiogram showing normal gallbladder anatomy and free flow of contrast through the common bile duct and the ampulla into the duodenum. Retrograde filling of the common hepatic duct and proper hepatic ducts without extravasation ? Grossly normal-appearing liver Surgeon: Carroll Banuelos high school agriculture teacher: Cesar Garland Type of Anesthesia: General/Supplemental Anesthesiologist: Cornelio Perry Specimen's removed: Gallbladder Estimated Blood Loss (mL): 20 Description of Procedure: After proper identification in the preoperative holding area the patient was brought to the operating room where she was positioned supine on the operating room table. Preoperatively SCDs were connected and antibiotics were administered. General anesthesia was then induced. Patient's abdomen was prepped and draped in usual sterile fashion. A formal timeout was conducted to confirm both patient and the procedure. Procedure was begun with a supraumbilical incision which was extended deeply down to the level of the fascia. The fascia was elevated and incised, as well as the peritoneum. A finger sweep was performed to ensure there were no underlying adhesions and a 12 mm balloon trocar was inserted. Pneumoperitoneum was established at 15 mmHg. Three additional trocars (all 5 mm) were placed in the epigastrium and in the right upper quadrant. Inspection of the peritoneum revealed no inadvertent injury to the viscera below. The gallbladder was visualized with mild to moderate acute inflammation and omental adhesions had to be peeled down from the gallbladder carefully to fully expose it. The gallbladder fundus was then grasped and elevated cephalad. Then, using careful dissection the peritoneum was opened and the structures of the hepatocystic triangle were delineated. Once the critical view of safety was obtained, the cystic duct was singly clipped and partially divided with a ductotomy. Using an Dobson [place] clamp, a cholangiocatheter was fed into the proximal segment of the cystic duct and clamped into place. Under fluoroscopy a cholangiogram was then obtained showing a standard length cystic duct flowing into a common bile duct with unobstructed antegrade flow of contrast into the duodenum. There was also retrograde flow through the common hepatic duct into the right and left hepatic ducts. Satisfied with this result, the cholangiocatheter was withdrawn and the proximal cystic duct was sealed with clips and the cystic duct was completely transected. The same process was used for the cystic artery. As I approached the cystic plate there appeared to be a secondary cystic artery entering the gallbladder versus tenacious posterior peritoneal attachments/lymphatics. Given that they were clearly entering the gallbladder and no other structures and had the potential to bleed these structures were also clipped and sharply divided. The gallbladder was then removed from the gallbladder fossa with the use of electrocautery. During this process of gallbladder removal an inadvertent rent was made in the posterior wall of the gallbladder resulting in local spillage of bile which was promptly suctioned from the peritoneum. A grasper was placed across this opening to include further spillage. Then the gallbladder was completely removed and placed in an Endo Catch bag. Selective electrocautery was used to obtain hemostasis in the gallbladder fossa. The gallbladder was placed in an Endo Catch bag and removed from the peritoneum. Morison's pouch was irrigated and the effluent was suctioned free of the peritoneum. Hemostasis was again confirmed on the gallbladder fossa. Pneumoperitoneum was evacuated and the fascia of the 12 mm port sites was closed with #1Vicryl in a [id number] fashion. A total of 30 mL of anesthetic was injected at the port sites for postoperative pain control. The skin of each port site was then closed in subcuticular fashion using 4-0 Monocryl. Steri-Strips and bandages were applied as dressings. Patient tolerated the procedure well without any apparent complications. On emergence from their anesthetic the patient was taken to PACU for ongoing recovery. Complications None Admit VTE Documentation VTE Mechan Device Prophylaxis: SCD's Procedures Digestive 40xxx-49xxx: 20735 Laparo cholecystectomy/graph
--- NOTE | 2024-04-28 09:28 | PCM.POST.ANE ---
Anesthesia: Postop Eval I Current Vital Signs Temperature: 97.7 F Pulse Rate: 93 Blood Pressure: 109/87 Respiratory Rate: 20 Pulse Ox: 100 Oxygen Delivery Method: Room Air Assessment Airway patent: Yes Spontaneous unlabored respirations: Yes Mental status: Awake nausea: No Vomiting: No Anesthesia Complication: No Fluid Hydration Crystalloid volume administer (ml): 1,200 Total IV fluid infused: 1,200 Progress Note Anesthesia document: Postop Eval 1 completed: Yes
--- NOTE | 2024-04-28 09:53 | DCINST_ITS ---
Discharge Instructions Diet Discharge Diet: No restrictions Activity Discharge Activity: May Not Drive (No driving while using narcotic pain medication) and May Shower (Postoperative day 1) May shower in (days): 2 Ice area for (Minutes): 20 Lifting Restrictions: No lifting greater than 15 pounds for 2 weeks after surgery Dressing / Incision Call your doctor if your incision/area has: Continuous Slow Oozing, Increased Pain/ Swelling, Increased Redness, Foul Smelling Discharge and Swelling at the incision site Call your doctor if you observe: Fever of 101 or Higher Remove Dressing in: 2 days (Please leave Steri-Strips intact until they fall off spontaneously or are taken off at your follow-up visit) Cleanse incision/area with: Soap & Water Follow Up Care Please Follow Up With: Carroll Banuelos MD When: 7-10days postop Test Results: Test results from this visit will be discussed in further detail at your follow- up appointment, if applicable. Discharge Plan Admission Admit Date/Time: 04/27/24 09:40 Primary Reason for Your Visit: Gallbladder surgery Attending Provider: Carroll Banuelos Primary Care Provider: Zhou Patel Discharge Orders/Prescriptions Prescriptions: New oxycodone 5 mg Tablet 5 mg PO Q4H PRN PRN (Reason: Pain Score 4-10) 3 Days Qty: 10 0RF Referrals / Follow Up: Zhou Patel MD [Primary Care Provider] - Disposition Disposition (needs filled in before D/C Order can be placed): Home, Self Care
--- NOTE | 2024-04-28 09:57 | PCM.DC.SUM ---
Providers Date of Admission: 04/27/24 Primary Care Physician: Dr. Zhou Patel MD Reason For Visit: ACUTE CHOLECYSTITIS Diagnosis Discharge Diagnosis (1) Acute cholecystitis: Status: Acute Code(s): K81.0 - Acute cholecystitis Plan: Patient is hospital day 2 for admission for acute cholecystitis. She is pending operating room for lap sav with IOC today. Procedure details were reviewed and consents were confirmed. Will now proceed to the operating room. Tentatively planning for discharge later today pending evaluation of patient's tolerance of general anesthesia and postoperative pain control. Carroll Banuelos MD General Surgery Endocrine Surgery Pager: [facility] [address] [place] [address], [address] [place] [address] Office: [phone] Medications at Discharge Home Medications oxycodone 5 mg tablet 5 mg PO Q4H PRN PRN Pain Score 4-10 3 days #10 tabs 04/28/24 Hospital Course Operations cholecystecomy (04/28/2024) Procedures None Summary of Care Provided Hospital Course: Patient is a 43-year-old female who was evaluated in the emergency department starting late in the evening of 04/26/2024 and extending into the highway patrol officer of 04/27/2024 for complaints of acute onset abdominal pain. She was ultimately diagnosed with acute cholecystitis after suggestive CT and ultrasound imaging. With this diagnosis laparoscopic cholecystectomy with intraoperative cholangiography was recommended. Upon hearing patient's agreement she was posted for the operating room the next morning. Procedure was undertaken uncomplicated fashion morning of 04/28/2024. Intraoperative cholangiogram showed no filling defects. [facility] with gradual diet advancement. She described initial difficulties with postoperative nausea, but gradually subsided with antiemetics. Postoperative pain is described as minimal. After proving diet tolerance she was granted discharge to home with instructions for postoperative wound care and postoperative outpatient follow-up. Physical Exam Const alert, oriented x3 and no apparent distress General Appearance: cooperative Resp normal respiratory effort GI GI Narrative: Operative dressings are clean dry and intact, nondistended, soft, minimally but appropriately tender to palpation Weight / BMI Weight Weight: 150 lb 11.2 oz Body Mass Index (BMI) 26.6 ABG / Lab / Microbiology Data 04/28/24 04:40 08/30/24 04:40 Laboratory: Laboratory Results - last 24 hr 04/28/24 04:40: WBC 6.1, RBC 4.05 L, Hgb 12.6, Hct 37.3, MCV 92.1, MCH 31.1, MCHC 33.8 D, RDW Std Deviation 41.7, RDW Coeff of Syl 12.4, Plt Count 239, MPV 9.9, Immature Gran % (Auto) 0.300, Neut % (Auto) 49.7, Lymph % (Auto) 39.5, Whitfield % (Auto) 7.9, Eos % (Auto) 2.1, Baso % (Auto) 0.5, Absolute Neuts (auto) 3.0, Absolute Lymphs (auto) 2.41, Nucleated RBC % 0, Sodium 140, Potassium 3.7, Chloride 110 H, Carbon Dioxide 25.0, Anion Gap 5, BUN 5 L, Creatinine 0.84, Estim Creat Clear Calc 81.26, Est GFR (MDRD) Af Amer 95, Est GFR (MDRD) Non-Af 78, BUN/Creatinine Ratio 5.9 L, Glucose 86, Calcium 8.2 L, Total Bilirubin 1.10 H, AST 16, ALT 16, Alkaline Phosphatase 67, Total Protein 5.1 L, Albumin 2.8 L, Globulin 2.3, Albumin/Globulin Ratio 1.2 Radiography Diagnostic Testing: Radiology Impression Cholangiogram 04/28/24 08:00 IMPRESSION: Unremarkable intraoperative cholangiogram. Electronically Signed: Devante Miller MD at 9:16 EDT , D/C Instructions Discharge Diet: No restrictions May shower in (days): 2 Ice area for (Minutes): 20 Call your doctor if your incision/area has: Continuous Slow Oozing, Increased Pain/ Swelling, Increased Redness, Foul Smelling Discharge and Swelling at the incision site Call your doctor if you observe: Fever of 101 or Higher Cleanse incision/area with: Soap & Water Please Follow Up With: Carroll Banuelos MD When: 7-10days postop Meaningful Use Info Meaningful Use Meaningful Use Diagnoses (Choose all that apply): None applicable Ischemic Stroke Statin Dosing Therapy Reference: STATIN DOSE THERAPY REFERENCE: * Patients > 75 years receive moderate or high dose statin therapy. * Patients 75 years or YOUNGER should receive HIGH intensity statin dose unless contraindicated. You will be required to document reason for non-treatment if statin daily dose does not meet guidelines. HIGH DOSE STATIN THERAPY DAILY Atorvastatin > than or = to 40 mg Rosuvastatin > than or = to 20 mg Amlodipine + Atorvastatin > than or = to 2.5/40 mg Ezetimibe + Simvastatin 10/80 mg Simvastatin 80mg Discharge Plan Admission Admit Date/Time: 04/27/24 09:40 Primary Reason for Your Visit: Gallbladder surgery Attending Provider: Carroll Banuelos Primary Care Provider: hZou Patel Discharge Orders/Prescriptions Prescriptions: New oxycodone 5 mg Tablet 5 mg PO Q4H PRN PRN (Reason: Pain Score 4-10) 3 Days Qty: 10 0RF Referrals / Follow Up: Zhou Patel MD [Primary Care Provider] - Disposition Disposition (needs filled in before D/C Order can be placed): Home, Self Care Charges/Coding Visit Charges Inpatient E&M: 22125 Disch Hosp
[2024-04-28] MEDS: Ondansetron 4 MG/2 ML Vial IV (11:35)
--- NOTE | 2024-04-28 12:53 | POSTOPAN2_ITS ---
Anesthesia Postop Eval I Sum Postop Eval Completion status Anesthesia document: Postop Eval 1 completed: Yes Anesthesia Postop Eval I Summary Anesthesia Postop Eval I Summary: Anesthesia Postop Eval I: Assessment Summary Airway patent Yes 04/28/24 09:29 SECURITY INTELLIGENCE ANALYST.JDEF Spontaneous unlabored Yes 04/28/24 09:29 SECURITY INTELLIGENCE ANALYST.JDEF respirations Mental status Awake 04/28/24 09:29 SECURITY INTELLIGENCE ANALYST.JDEF nausea No 04/28/24 09:29 SECURITY INTELLIGENCE ANALYST.JDEF Vomiting No 04/28/24 09:29 SECURITY INTELLIGENCE ANALYST.JDEF Anesthesia Postop Eval I: Fluid Summary Crystalloid volume administer 1,200 04/28/24 09:29 SECURITY INTELLIGENCE ANALYST.JDEF (ml) Colloids volume administered ( ml) Blood Product volume administered (ml) Total IV fluid infused 1,200 04/28/24 09:29 SECURITY INTELLIGENCE ANALYST.JDEF Anesthesia Postop Eval I: Summary Notes Anesthesia Complication No 04/28/24 09:29 SECURITY INTELLIGENCE ANALYST.JDEF Anesthesia Complication Comment: Post-operative progress note Anesthesia: Postop Eval II Evaluation Mental status: Awake and Calm Pain Level: 1 nausea: No Vomiting: No Complications Anesthesia Complication: No
--- NOTE | 2024-04-28 12:53 | PCM.POSTANE2 ---
Anesthesia Postop Eval I Sum Postop Eval Completion status Anesthesia document: Postop Eval 1 completed: Yes Anesthesia Postop Eval I Summary Anesthesia Postop Eval I Summary: Anesthesia Postop Eval I: Assessment Summary Airway patent Yes 04/28/24 09:29 BANKING SERVICES ADVISOR.JDEF Spontaneous unlabored Yes 04/28/24 09:29 BANKING SERVICES ADVISOR.JDEF respirations Mental status Awake 04/28/24 09:29 BANKING SERVICES ADVISOR.JDEF nausea No 04/28/24 09:29 BANKING SERVICES ADVISOR.JDEF Vomiting No 04/28/24 09:29 BANKING SERVICES ADVISOR.JDEF Anesthesia Postop Eval I: Fluid Summary Crystalloid volume administer 1,200 04/28/24 09:29 BANKING SERVICES ADVISOR.JDEF (ml) Colloids volume administered ( ml) Blood Product volume administered (ml) Total IV fluid infused 1,200 04/28/24 09:29 BANKING SERVICES ADVISOR.JDEF Anesthesia Postop Eval I: Summary Notes Anesthesia Complication No 04/28/24 09:29 BANKING SERVICES ADVISOR.JDEF Anesthesia Complication Comment: Post-operative progress note Anesthesia: Postop Eval II Evaluation Mental status: Awake and Calm Pain Level: 1 nausea: No Vomiting: No Complications Anesthesia Complication: No
[2024-04-28] MEDS: oxyCODONE 5 MG Tablet PO (15:56)
== END 2024-04-28 18:52 | disposition home or self-care (01) ==
LOC: ED 04-27 09:40 → MS3 04-27 13:54
PROVIDERS: Emergency Medicine; Admitting Provider Physician Assistant; Emergency Provider Emergency Medicine; PCP Family Medicine; Visit Provider Surgery
PROC: (CPT 47610; principal; 2024-04-28 07:10)
DX: K80.12 Calculus of gallbladder with acute and chronic cholecystitis without obstruction (principal)
CPT/HCPCS: 47563; 36415; 74177; 74300; 76000; 76705; 80053; 81001; 83605; 83690; 84484; 84703; 85025; 88304; 93005; 94668; 96361; 96365; 96366; 96375; 96376; 99221; 99283; J7030; Q9967; A4216; G0378; J2405; J3490